=== PATIENT | female | born 1960 | race Caucasian/White ===

== ENCOUNTER 2018-02-14 10:26 | Inpatient (IN) | payer MEDICARE ==
[2018-02-14] VITALS (16 sets, daily range): BP systolic 87–274; BP diastolic 52–138; PULSE 88–114; RESP 14–22; TEMP 97.8; O2SAT 100
[~2018-02-14 10:26] MED LIST: CARV12.52 OR; HYDR50TA5 PO; TELM1TAB56 PO
[2018-02-14] MEDS ORDERED: niCARdipine INJ 25 MG in SODIUM CHLOR 0.9% 250 ML INJ 240 ML IV PRN (10:45)
--- NOTE | 2018-02-14 10:58 | RADRPT ---
EXAM DATE/TIME: 02/14/2018 10:31 [facility] COMPARISON: CHEST SINGLE AP, April 19, 2011, 16:34. INDICATIONS : Endotracheal tube placement. MEDICAL HISTORY : Unknown SURGICAL HISTORY : Unknown ENCOUNTER: Initial ACUITY: 1 day PAIN SCORE: Non-responsive. LOCATION: Bilateral chest FINDINGS: Interval intubation with the tip of the endotracheal tube in the right main bronchus, approximately 2 .4 cm below the roseline. There is mild loss of the left lung with some elevation of the left hemidiap hragm. Gastric tube traverses the [id number]. The right lung is clear. Incidental note of azygo us lobe. Loop recorder device in place. CONCLUSION: Intubation of the right main bronchus; the tube extends 2.4 cm below the roseline. Kamari Triana MD on February 14, 2018 at 10:54 Board Certified Radiologist. This report was verified electronically.
[2018-02-14] MEDS ORDERED: SODIUM CHLOR 0.9% 1000 ML INJ 1,000 ML IV SCH (11:00)
[2018-02-14 11:02] LABS: BASOPHIL % 0.4 % (0.0-2.0); EOSINOPHIL # 0.2 TH/MM3 (0-0.4); EOSINOPHIL % 1.8 % (0.0-4.0); HEMOGLOBIN 10.7 GM/DL (11.6-15.3); LYMPH % 21.4 % (9.0-44.0); LYMPHOCYTE # 2.1 TH/MM3 (1.0-4.8); MEAN CELL VOLUME 89.9 FL (80.0-100.0); MEAN CORPUSCULAR HGB CONC 34.5 % (32.0-36.0); MEAN PLATELET VOLUME 6.9 FL (7.0-11.0); MONO % 5.8 % (0.0-8.0); MONOCYTE # 0.6 TH/MM3 (0-0.9); NEUT % 70.6 % (16.0-70.0); PLATELET COUNT 202 TH/MM3 (150-450); RED BLOOD COUNT 3.45 MIL/MM3 (4.00-5.30); RED CELL DISTRIBUTION WIDTH 14.1 % (11.6-17.2); WHITE BLOOD COUNT 9.9 TH/MM3 (4.0-11.0)
--- NOTE | 2018-02-14 11:03 | PD ---
HPI Chief Complaint: Altered Mental Status Time Seen by Provider: 10:28 Travel History International Travel<30 days: No Contact w/Intl Traveler<30days: No Traveled to known affect area: No History of Present Illness HPI 57-year-old female was brought in by EMS for altered mental status. EMS reported that the daughter heard patient screaming this morning. Patient's daughter felt patient lying facedown on the floor with some blood from the mouth. Patient's daughter tried to turn the patient over and the patient became unresponsive. EMS was called. Patient was found to have a GS of 3. Patient was given Versed 4 mg and etomidate 20 mg IV and intubated. Patient has history of hypertension and diabetes. Patient also has history of CVA recently and was on Lovenox and switched to Coumadin for the past few days. Unable to obtain any more information from EMS. Family members not available. PFSH Past Medical History Medical History: Unable to Obtain Cerebrovascular Accident: Yes Diabetes: Yes Patient Takes Glucophage: No Genitourinary: Yes (Kidney disease (FSGS)) Hypertension: Yes Tetanus Vaccination: Unknown ?: Unknown Past Surgical History Surgical History: Unable to Obtain Abdominal Surgery: Yes (Kidney Biopsy) Section: Yes Tonsillectomy: Yes Social History Alcohol Use: Yes (occ) Tobacco Use: No Substance Use: No Allergies-Medications (Allergen,Severity, Reaction): Coded Allergies: benazepril (Unverified Allergy, Severe, 06/25/17) captopril (Unverified Allergy, Severe, 06/25/17) codeine (Unverified Allergy, Severe, 06/25/17) enalaprilat (Unverified Allergy, Severe, 06/25/17) fosinopril (Unverified Allergy, Severe, 06/25/17) lisinopril (Unverified Allergy, Severe, 06/25/17) quinapril (Unverified Allergy, Severe, 06/25/17) Reported Meds & Prescriptions Reported Meds & Active Scripts Active Reported Hydrochlorothiazide 25 Mg Tab 25 Mg PO DAILY [Hitrin] 5 Mg PO DAILY Methadone (Methadone HCl) 10 Mg Tab 10 Mg PO QID Gabapentin 600 Mg Tab 600 Mg PO BID Oxybutynin ER 24 HR (Oxybutynin Chloride) 5 Mg Tab 5 Mg PO DAILY Nifedipine ER 24 HR (Nifedipine) 30 Mg Tab 30 Mg PO DAILY Micardis (Telmisartan) 80 Mg Tab 80 Mg PO BID Cymbalta DR (Duloxetine HCl) 60 Mg Capdr 60 Mg PO DAILY Tizanidine (Tizanidine HCl) 4 Mg Cap 4 Mg PO BID Coumadin (Warfarin) 7.5 Mg Tab 7.5 Mg PO DAILY Tramadol (Tramadol HCl) 50 Mg Tab 50 Mg PO BID PRN Pravastatin 40 Mg Tab 40 Mg PO DAILY Review of Systems ROS Limitations: Intubated, Altered Mental Status Physical Exam Narrative GENERAL: Well-nourished, well-developed patient. SKIN: Focused skin assessment warm/dry. HEAD: Normocephalic. EYES: No scleral icterus. No injection or drainage. Pupils 5 mm equal nonreactive. NECK: Supple, trachea midline. No JVD or lymphadenopathy. CARDIOVASCULAR: Regular rate and rhythm without murmurs, gallops, or rubs. RESPIRATORY: Patient has no spontaneous respiration. Patient is intubated. Breath sounds equal bilaterally with vent GASTROINTESTINAL: Abdomen soft, nondistended. MUSCULOSKELETAL: No cyanosis, or edema. BACK: No obvious deformity. Neurologic exam: Patient unresponsive. Patient is intubated. No corneal reflex. Data Data Last Documented VS Vital Signs Date Time Temp Pulse Resp B/P (MAP) Pulse Ox O2 Delivery O2 Flow Rate FiO2 02/14/18 11:32 102 102/56 (71) 02/14/18 11:23 14 100 Ventilator 100 02/14/18 10:28 97.8 Orders Orders Electrocardiogram (02/14/18 10:28) Complete Blood Count With Diff (02/14/18 10:28) Comprehensive Metabolic Panel (02/14/18 10:28) Creatine Kinase (Cpk) (02/14/18 10:28) Troponin I (02/14/18 10:28) B-Type Natriuretic Peptide (02/14/18 10:28) Prothrombin Time / Inr (Pt) (02/14/18 10:28) Act Partial Throm Time (Ptt) (02/14/18 10:28) Blood Culture (02/14/18 10:28) Urinalysis - C+S If Indicated (02/14/18 10:28) Thyroid Stimulating Hormone (02/14/18 10:28) Chest, Single Ap (02/14/18 10:28) Ct Brain W/O Iv Contrast(Rout) (02/14/18 10:28) Iv Access Insert/Monitor (02/14/18 10:28) Ecg Monitoring (02/14/18 10:28) Oximetry (02/14/18 10:28) Urinary Catheter Insert/Apply (02/14/18 10:28) Kirstie-Gastric Tube Insert/Mon (02/14/18 10:28) Drug Screen, Random Urine (02/14/18 10:28) Alcohol (Ethanol) (02/14/18 10:28) Salicylates (Aspirin) (02/14/18 10:28) Tylenol (Acetaminophen) (02/14/18 10:28) Nicardipine Inj (Cardene Inj) (02/14/18 10:45) Lactic Acid Sepsis Protocol (02/14/18 10:44) Restraints Non-Violent LOU.Q3H (02/14/18 10:45) Sodium Chlor 0.9% 1000 Ml Inj (Ns 1000 M (02/14/18 11:00) Ct Cerv Spine W/O Contrast (02/14/18 10:58) ^ Lab Follow Up (02/14/18 11:03) Fresh Frozen Plasma (Ffp) (02/14/18 11:03) Type And Screen (02/14/18 11:03) Prothrombin Complex Conc Inj (Kcentra In (02/14/18 12:15) Ct Facial Bones W/O Iv Cont (02/14/18 11:09) Norepinephrine-Dextrose Drip (Levophed-D (02/14/18 13:00) Terbutaline Inj (Brethine Inj) (02/14/18 11:30) Lactic Acid Sepsis Protocol (02/14/18 11:25) Norepinephrine Inj (Levophed Inj) (02/14/18 11:25) Fresh Frozen Plasma (Ffp) (02/14/18 11:29) Blood Product Administration (02/14/18 11:29) Sodium Chlor 0.9% 250 Ml Inj (Ns 250 Ml (02/14/18 11:30) Admit Order (Ed Use Only) (02/14/18 11:30) Labs Laboratory Tests Test 02/14/18 10:35 White Blood Count 9.9 TH/MM3 Red Blood Count 3.45 MIL/MM3 Hemoglobin 10.7 GM/DL Hematocrit 31.0 % Mean Corpuscular Volume 89.9 FL Mean Corpuscular Hemoglobin 31.0 PG Mean Corpuscular Hemoglobin Concent 34.5 % Red Cell Distribution Width 14.1 % Platelet Count 202 TH/MM3 Mean Platelet Volume 6.9 FL Neutrophils (%) (Auto) 70.6 % Lymphocytes (%) (Auto) 21.4 % Monocytes (%) (Auto) 5.8 % Eosinophils (%) (Auto) 1.8 % Basophils (%) (Auto) 0.4 % Neutrophils # (Auto) 7.0 TH/MM3 Lymphocytes # (Auto) 2.1 TH/MM3 Monocytes # (Auto) 0.6 TH/MM3 Eosinophils # (Auto) 0.2 TH/MM3 Basophils # (Auto) 0.0 TH/MM3 CBC Comment DIFF FINAL Differential Comment Prothrombin Time 46.9 SEC Prothromb Time International Ratio 4.7 RATIO Activated Partial Thromboplast Time 49.6 SEC Urine Color LIGHT-YELLOW Urine Turbidity HAZY Urine pH 5.5 Urine Specific [place] 1.017 Urine Protein 100 mg/dL Urine Glucose (UA) TRACE mg/dL Urine Ketones NEG mg/dL Urine Occult Blood SMALL Urine Nitrite NEG Urine Bilirubin NEG Urine Urobilinogen LESS THAN 2.0 MG/DL Urine Leukocyte Esterase NEG Urine RBC 3 /hpf Urine WBC 2 /hpf Urine Squamous Epithelial Cells 3 /hpf Urine Bacteria FEW /hpf Urine Mucus FEW /lpf Microscopic Urinalysis Comment CULT NOT INDICATED Lactic Acid Level 1.3 mmol/L B-Type Natriuretic Peptide 64 PG/ML Salicylates Level 3.0 MG/DL Urine Opiates Screen NEG Urine Barbiturates Screen NEG Urine Amphetamines Screen NEG Urine Benzodiazepines Screen POS Urine Cocaine Screen NEG Urine Cannabinoids Screen NEG MDM Medical Decision Making Medical Screen Exam Complete: Yes Emergency Medical Condition: Yes Interpretation(s) Last Impressions Maxillofacial CT 02/14/18 1109 Signed Impressions: Service Date/Time: Wednesday, February 14, 2018 11:00 - CONCLUSION: 1. No facial fractures. 2. See the CT of the brain reported separately. Kamari Escalante Jr., MD Cervical Spine CT 02/14/18 1057 Signed Impressions: Service Date/Time: Wednesday, February 14, 2018 11:04 - CONCLUSION: 1. No acute fracture or subluxation. 2. Mild degenerative spondylosis of the cervical spine. 3. Heterogeneously enlarged thyroid containing calcified nodules. Rich Schultz MD Head CT 02/14/18 1028 Signed Impressions: Service Date/Time: Wednesday, February 14, 2018 11:00 - CONCLUSION: There is a huge right temporal and parietal hematoma with spread to the subarachnoid and intraventricular spaces. There is both subfalcine and transtentorial herniation. The findings were called to Dr. Junior. Kamari Triana MD Chest X-Ray 02/14/18 1028 Signed Impressions: Service Date/Time: Wednesday, February 14, 2018 10:31 - CONCLUSION: Intubation of the right main bronchus; the tube extends 2.4 cm below the roseline. Kamari Triana MD Differential Diagnosis Differential diagnosis includes CVA, electrolyte imbalance, dehydration, sepsis. Narrative Course 57-year-old female was brought in by EMS after patient was found unresponsive at home. Patient was intubated at the scene. Patient is on Coumadin for recent CVA. CT scan shows intracranial hemorrhage with herniation. Patient was hypotensive. Cardene drip was started. K frozen plasma. Frozen plasma were ordered. Dr. ARTHUR, neurosurgeon and I spoke with the family and discussed with the family. Family decided to make patient DNR. Family decided against K Centra and fresh frozen plasma. Family members decided against Levophed for hypotension. Critical Care Narrative Aggregate critical care time was 60 minutes. Time to perform other separately billable procedures was not included in the critical care time. My time did not include minutes spent treating any other patients simultaneously or on activities that did not directly contribute to the patient's treatment. The services I provided to this patient were to treat and/or prevent clinically significant deterioration that could result in: I provided critical care services requiring my management, as noted below: Chart data review, documentation time, medication orders and management, vital sign assessments/reviewing monitor data, ordering and reviewing lab tests, ordering and interpreting/reviewing x-rays and diagnostic studies, care of the patient and discussion of the patient with the admitting physicians. Diagnosis Primary Impression: Intracranial hemorrhage Admitting Information Admitting Physician Requests: Admit Kapil Junior MD Feb 14, 2018 11:03
--- NOTE | 2018-02-14 11:12 | RADRPT ---
EXAM DATE/TIME: 02/14/2018 11:00 [facility] COMPARISON: CT BRAIN W/O CONTRAST, April 19, 2011, 17:07. INDICATIONS : Altered mental status. RADIATION DOSE: 35.56 CTDIvol (mGy) MEDICAL HISTORY : Non-responsive. SURGICAL HISTORY : Non-responsive. ENCOUNTER: Initial ACUITY: 1 day PAIN SCALE: Non-responsive LOCATION: cranial TECHNIQUE: Multiple contiguous axial images were obtained of the head. Using automated exposure control and adj ustment of the mA and/or kV according to patient size, radiation dose was kept as low as reasonably a chievable to obtain optimal diagnostic quality images. DICOM format image data is available electro nically for review and comparison. FINDINGS: Abnormal scan. There is a large parenchymal hemorrhage involving both the right temporal and parieta l lobes, measuring in excess of 7.3 cm which causes significant mass effect, with deviation of the 3r d ventricle 1.7 cm towards the left. There is also some subarachnoid blood extending to the high con vexity and intraventricular blood in the lateral ventricles, 3rd ventricle, and 4th ventricle. There is evidence of both subfalcine and transtentorial herniation with no CSF seen about the cisterns of the brainstem. The 4th ventricle remains in the midline. The calvarium is intact. CONCLUSION: There is a huge right temporal and parietal hematoma with spread to the subarachnoid and intraventric ular spaces. There is both subfalcine and transtentorial herniation. The findings were called to Dr. Junior. Kamari Triana MD on February 14, 2018 at 11:03 Board Certified Radiologist. This report was verified electronically.
[2018-02-14 11:16] LABS: INTERNATIONAL NORMALIZED RATIO 4.7 RATIO; PROTHROMBIN TIME - PATIENT 46.9 SEC (9.8-11.6)
[2018-02-14 11:22] LABS: BACTERIA, URINE FEW /hpf; BILIRUBIN, URINE NEG (NEG); BLOOD, URINE SMALL (NEG); GLUCOSE,URINE TRACE mg/dL (NEG); KETONE, URINE NEG (NEG); MUCUS URINE FEW /lpf (OCC); NITRITE,URINE NEG (NEG); PH, URINE 5.5 (5.0-8.5); SQUAMOUS EPITHELIAL CELL URINE 3 /hpf (0-5); URINE COLOR LIGHT-YELLOW (YELLW/STRAW); URINE LEUKOCYTE ESTERASE NEG (NEG)
[2018-02-14] MEDS ORDERED: TELM1TAB56 PO (11:23)
[2018-02-14] MEDS ORDERED: TRAM50TA PO (11:23)
[2018-02-14] MEDS ORDERED: [UNRECOGNIZED DRUG - OTHER] PO (11:23)
[2018-02-14] MEDS ORDERED: TIZA4CAP3 PO (11:23)
[2018-02-14] MEDS ORDERED: GABA600T PO (11:23)
[2018-02-14] MEDS ORDERED: OXYB5TAB PO (11:23)
[2018-02-14] MEDS ORDERED: CYMB60CA PO (11:23)
[2018-02-14] MEDS ORDERED: METH10TA PO (11:23)
[2018-02-14] MEDS ORDERED: PRAV40TA2 PO (11:23)
[2018-02-14] MEDS ORDERED: NIFE30TA61 PO (11:23)
[2018-02-14] MEDS ORDERED: HYDR25TA5 PO (11:23)
[2018-02-14] MEDS ORDERED: COUM7.5T PO (11:23)
[2018-02-14] MEDS ORDERED: NOREPINEPHRINE 4 MG/4 ML AMP ONE (11:25)
[2018-02-14] MEDS ORDERED: TERBUTALINE INJ 1 MG/ML AMP SQ PRN (11:30)
[2018-02-14] MEDS ORDERED: SODIUM CHLOR 0.9% 250 ML INJ 250 ML IV ONE (11:30)
--- NOTE | 2018-02-14 11:33 | RADRPT ---
EXAM DATE/TIME: 02/14/2018 11:00 [facility] COMPARISON: No previous studies available for comparison. INDICATIONS : Fall. RADIATION DOSE: 80.06 CTDIvol (mGy) MEDICAL HISTORY : Non-responsive. SURGICAL HISTORY : Non-responsive. ENCOUNTER: Initial ACUITY: 1 day PAIN SCORE: Non-responsive LOCATION: facial TECHNIQUE: Volumetric scanning of the facial bones was performed. Using automated exposure control and adjustme nt of the mA and/or kV according to patient size, radiation dose was kept as low as reasonably achiev able to obtain optimal diagnostic quality images. DICOM format image data is available [employer] y for review and comparison. FINDINGS: ORBITS: The orbital and infraorbital osseous structures are intact. The retroconal structures have a normal configuration. No radiopaque foreign bodies are seen. NASAL BONE: The nasal bone and maxillary spine are intact ZYGOMATIC ARCHES: Symmetric without evidence of fracture. SINUSES: The maxillary, ethmoid and frontal sinuses are intact. No air-fluid levels seen. NASAL CAVITY: The nasal septum is intact and midline. The lacrimal ducts are intact. SOFT TISSUES: No radiopaque foreign bodies seen. No soft-tissue swelling is seen. INTRACRANIAL: No intracranial air seen. CRIBIFORM PLATE: Grossly intact. Endotracheal tube and orogastric tube noted. See the CT the brain reported separately. CONCLUSION: 1. No facial fractures. 2. See the CT of the brain reported separately. Kamari Escalante Jr., MD on February 14, 2018 at 11:22 Board Certified Radiologist. This report was verified electronically.
--- NOTE | 2018-02-14 11:33 | RADRPT ---
EXAM DATE/TIME: 02/14/2018 11:04 [facility] COMPARISON: No previous studies available for comparison. INDICATIONS : Fall. RADIATION DOSE: 45.17 CTDIvol (mGy) MEDICAL HISTORY : Non-responsive. SURGICAL HISTORY : Non-responsive. ENCOUNTER: Initial ACUITY: 1 day PAIN SCALE: Non-responsive LOCATION: neck TECHNIQUE: Volumetric scanning of the cervical spine was performed. Multiplanar reconstructions i n the sagittal, coronal and oblique axial planes were performed. Using automated exposure control a nd adjustment of the mA and/or kV according to patient size, radiation dose was kept as low as reason ably achievable to obtain optimal diagnostic quality images. DICOM format image data is available e lectronically for review and comparison. FINDINGS: Vertebral body heights are maintained. Osseous structures are intact without evidence for acute bony fracture. Dens is intact. Sagittal alignment is maintained. There is a normal C1-2 relationship. Face ts are normally aligned. There is no significant prevertebral soft tissue hematoma. Mild degenerative spondylosis of the lower cervical spine most prominently at C4-6 with posterior disc osteophytes. No significant cervical adenopathy or gross mass. The thyroid is heterogeneously enlarged and contains calcified nodules. Visualized lung apices are clear without pneumothorax. CONCLUSION: 1. No acute fracture or subluxation. 2. Mild degenerative spondylosis of the cervical spine. 3. Heterogeneously enlarged thyroid containing calcified nodules. Rich Schultz MD on February 14, 2018 at 11:26 Board Certified Radiologist. This report was verified electronically.
[2018-02-14] MEDS ORDERED: ONDANSETRON HCL 4 MG/2 ML VIAL IV PUSH PRN (12:00)
[2018-02-14] MEDS ORDERED: MORPHINE SULFATE 4 MG/ML INJ IV PUSH PRN (12:00)
[2018-02-14] MEDS ORDERED: MISCELLANEOUS NURSING INFORMATION XX SCH (12:00)
[2018-02-14] MEDS ORDERED: MAGNESIUM HYDROXIDE SUSP 30 ML CUP PO PRN (12:00)
[2018-02-14] MEDS ORDERED: RESP: ALBUTEROL 2.5 MG/IPRATROPIUM 0.5 MG NEB (PRN) INH (12:00)
[2018-02-14] MEDS ORDERED: CHLORHEXIDINE GLUCONATE 2 % 1 PACK (2 CLOTHS) TOP PRN (12:00)
[2018-02-14] MEDS ORDERED: ACETAMINOPHEN 325 MG TAB PO PRN (12:00)
[2018-02-14] MEDS ORDERED: SENNOSIDES 8.6 MG TAB PO PRN (12:00)
[2018-02-14] MEDS ORDERED: BISACODYL 10 MG SUPP RECTAL PRN (12:00)
[2018-02-14] MEDS ORDERED: LACTULOSE SYRUP 20 GM/30 ML CUP PO PRN (12:00)
[2018-02-14] MEDS ORDERED: SODIUM CHLORIDE 0.9% FLUSH 10 ML FLUSH IV FLUSH PRN (12:00)
[2018-02-14] MEDS ORDERED: PROTHROMBIN COMPLEX CONC INJ 2,500 UNITS in SYRINGE/BAG 1 EA IV ONE (12:15)
[2018-02-14] MEDS ORDERED: NOREPINEPHRINE-DEXTROSE DRIP 250 ML IV PRN (13:00)
[2018-02-14 13:40] LABS: ALBUMIN 3.3 GM/DL (3.4-5.0); AST (GOT) 24 U/L (15-37); BICARBONATE 21.7 MEQ/L (21.0-32.0); BLOOD UREA NITROGEN 54 MG/DL (7-18); CALCIUM 9.1 MG/DL (8.5-10.1); CHLORIDE 106 MEQ/L (98-107); CREATININE 2.14 MG/DL (0.50-1.00); GLOMERULAR FILTRATION RATE 24 ML/MIN (>89); GLUCOSE,RANDOM 217 MG/DL (74-106); SODIUM (NA) 140 MEQ/L (136-145)
[2018-02-14 13:41] LABS: ALT (GPT) 23 U/L (10-53)
[2018-02-14 13:51] LABS: ACETAMINOPHEN LESS THAN 2.0 MCG/ML (10.0-30.0); ALKALINE PHOSPHATASE 96 U/L (45-117); TOTAL BILIRUBIN ADULT 0.3 MG/DL (0.2-1.0); TOTAL PROTEIN 7.7 GM/DL (6.4-8.2); TROPONIN I LESS THAN 0.02 NG/ML (0.02-0.05)
--- NOTE | 2018-02-14 13:59 | HHI.HP ---
[facility] Service Critical Care Medicine Primary Care Physician Unknown Admission Diagnosis Intracranial hemorrhage. On anticoagulation. Diagnosis: Chief Complaint: Headache, unconscious now. Travel History International Travel<30 Days: No Contact w/Intl Traveler <30 Da: No Traveled to Known Affected Are: No History of Present Illness 57 y/o woman with longstanding hypertension developed severe headache progressing to obtundation. CT head with large intracranial hemorrhage and herniation. Required intubation and mechanical ventilation. Workup proceeding. Care is complicated by coagulopathy due to INR > 4 via coumadin therapy. Kcentra and FFP infused immediately. Review of Systems ROS Unable. No family yet. Past Family Social History Allergies: Coded Allergies: benazepril (Unverified Allergy, Severe, 06/25/17) captopril (Unverified Allergy, Severe, 06/25/17) codeine (Unverified Allergy, Severe, 06/25/17) enalaprilat (Unverified Allergy, Severe, 06/25/17) fosinopril (Unverified Allergy, Severe, 06/25/17) lisinopril (Unverified Allergy, Severe, 06/25/17) quinapril (Unverified Allergy, Severe, 06/25/17) Past Medical History Past Medical History Medical History: Unable to Obtain Cerebrovascular Accident: Yes Diabetes: Yes Patient Takes Glucophage: No Genitourinary: Yes (Kidney disease (FSGS)) Hypertension: Yes Tetanus Vaccination: Unknown ?: Unknown Past Surgical History Surgical History: Unable to Obtain Abdominal Surgery: Yes (Kidney Biopsy) Section: Yes Tonsillectomy: Yes Social History Alcohol Use: Yes (occ) Tobacco Use: No Substance Use: No Allergies-Medications Allergies-Medications (Allergen,Severity, Reaction): Coded Allergies: benazepril (Unverified Allergy, Severe, 06/25/17) captopril (Unverified Allergy, Severe, 06/25/17) codeine (Unverified Allergy, Severe, 06/25/17) enalaprilat (Unverified Allergy, Severe, 06/25/17) fosinopril (Unverified Allergy, Severe, 06/25/17) lisinopril (Unverified Allergy, Severe, 06/25/17) quinapril (Unverified Allergy, Severe, 06/25/17) Reported Meds & Prescriptions Reported Meds & Active Scripts Active Reported Hydrochlorothiazide 25 Mg Tab 25 Mg PO DAILY [Hitrin] 5 Mg PO DAILY Methadone (Methadone HCl) 10 Mg Tab 10 Mg PO QID Gabapentin 600 Mg Tab 600 Mg PO BID Oxybutynin ER 24 HR (Oxybutynin Chloride) 5 Mg Tab 5 Mg PO DAILY Nifedipine ER 24 HR (Nifedipine) 30 Mg Tab 30 Mg PO DAILY Micardis (Telmisartan) 80 Mg Tab 80 Mg PO BID Cymbalta DR (Duloxetine HCl) 60 Mg Capdr 60 Mg PO DAILY Tizanidine (Tizanidine HCl) 4 Mg Cap 4 Mg PO BID Coumadin (Warfarin) 7.5 Mg Tab 7.5 Mg PO DAILY Tramadol (Tramadol HCl) 50 Mg Tab 50 Mg PO BID PRN Pravastatin 40 Mg Tab 40 Mg PO DAILY Physical Exam Vital Signs Vital Signs Date Time Temp Pulse Resp B/P (MAP) Pulse Ox O2 Delivery O2 Flow Rate FiO2 02/14/18 13:45 90 115/62 (79) 02/14/18 12:52 92 16 97/60 (72) 100 Ventilator 100 02/14/18 12:33 95 87/52 (64) 02/14/18 12:08 97 88/54 (65) 02/14/18 11:43 100 96/55 (69) 02/14/18 11:32 102 102/56 (71) 02/14/18 11:23 104 14 91/55 (67) 100 Ventilator 100 02/14/18 11:15 100 100 02/14/18 11:00 99 20 105/57 (73) 100 Ventilator 100 02/14/18 10:52 88 106/56 (73) 02/14/18 10:49 100 02/14/18 10:48 91 18 117/69 (85) 02/14/18 10:46 107 132/74 02/14/18 10:42 104 210/107 02/14/18 10:41 107 274/138 02/14/18 10:37 (183) 100 Ventilator 100 02/14/18 10:35 114 22 274/138 (183) 02/14/18 10:33 106 22 100 Ventilator 100 02/14/18 10:30 100 100 02/14/18 10:28 97.8 106 22 268/134 (178) 100 Physical Exam Gen: Obtunded. Neck: Supple, orally intubated. Lungs: Clear, good rodri air movement. Heart: RRR, 92/min, no m,r. No JVD. Abdomen: Soft, benign. Extremities: Warm, well perfused. Neuro: Pupils 6 mm, fixed. No cough, no gag, no corneal reflexes. No withdrawal to any stimulation. No spontaneous respiratory effort. No DTRs. No sedation. Laboratory Laboratory Tests Test 02/14/18 10:35 White Blood Count 9.9 Red Blood Count 3.45 Hemoglobin 10.7 Hematocrit 31.0 Mean Corpuscular Volume 89.9 Mean Corpuscular Hemoglobin 31.0 Mean Corpuscular Hemoglobin Concent 34.5 Red Cell Distribution Width 14.1 Platelet Count 202 Mean Platelet Volume 6.9 Neutrophils (%) (Auto) 70.6 Lymphocytes (%) (Auto) 21.4 Monocytes (%) (Auto) 5.8 Eosinophils (%) (Auto) 1.8 Basophils (%) (Auto) 0.4 Neutrophils # (Auto) 7.0 Lymphocytes # (Auto) 2.1 Monocytes # (Auto) 0.6 Eosinophils # (Auto) 0.2 Basophils # (Auto) 0.0 CBC Comment DIFF FINAL Differential Comment Prothrombin Time 46.9 Prothromb Time International Ratio 4.7 Activated Partial Thromboplast Time 49.6 Urine Color LIGHT-YELLOW Urine Turbidity HAZY Urine pH 5.5 Urine Specific [place] 1.017 Urine Protein 100 Urine Glucose (UA) TRACE Urine Ketones NEG Urine Occult Blood SMALL Urine Nitrite NEG Urine Bilirubin NEG Urine Urobilinogen LESS THAN 2.0 Urine Leukocyte Esterase NEG Urine RBC 3 Urine WBC 2 Urine Squamous Epithelial Cells 3 Urine Bacteria FEW Urine Mucus FEW Microscopic Urinalysis Comment CULT NOT INDICATED Lactic Acid Level 1.3 B-Type Natriuretic Peptide 64 Salicylates Level 3.0 Urine Opiates Screen NEG Urine Barbiturates Screen NEG Urine Amphetamines Screen NEG Urine Benzodiazepines Screen POS Urine Cocaine Screen NEG Urine Cannabinoids Screen NEG Date/Time Source Procedure Growth Status 02/14/18 10:35 Blood Peripheral Aerobic Blood Culture Pending Received 02/14/18 10:35 Blood Peripheral Anaerobic Blood Culture Pending Received Result Diagram: 02/14/18 6283 Caprini VTE Risk Assessment Caprini VTE Risk Assessment: No/Low Risk (score <= 1) Caprini Risk Assessment Model Point Value = 1 Point Value = 2 Point Value = 3 Point Value = 5 Age 41-60 Minor surgery BMI > 25 kg/m2 Swollen legs Varicose veins or History of unexplained or recurrent spontaneous Oral contraceptives or hormone replacement Sepsis (< 1 month) Serious lung disease, including pneumonia (< 1 month) Abnormal pulmonary function Acute myocardial infarction Congestive heart failure (< 1 month) History of inflammatory bowel disease Medical patient at bed rest Age 61-74 Arthroscopic surgery Major open surgery (> 45 min) Laparoscopic surgery (> 45 min) Malignancy Confined to bed (> 72 hours) Immobilizing plaster cast Central venous access Age >= 75 History of VTE Family history of VTE Factor V Leiden Prothrombin [id number] Lupus anticoagulant Anticardiolipin antibodies Elevated serum homocysteine Heparin-induced thrombocytopenia Other congenital or acquired thrombophilia Stroke (< 1 month) Elective arthroplasty Hip, pelvis, or leg fracture Acute spinal cord injury (< 1 month) Prophylaxis Regimen Total Risk Factor Score Risk Level Prophylaxis Regimen 0-1 Low Early ambulation 2 Moderate Order ONE of the following: *Sequential Compression Device (SCD) *Heparin 5000 units SQ BID 3-4 Higher Order ONE of the following medications: *Heparin 5000 units SQ TID *Enoxaparin/Lovenox 40 mg SQ daily (WT < 150 kg, CrCl > 30 mL/min) *Enoxaparin/Lovenox 30 mg SQ daily (WT < 150 kg, CrCl > 10-29 mL/min) *Enoxaparin/Lovenox 30 mg SQ BID (WT < 150 kg, CrCl > 30 mL/min) AND/OR *Sequential Compression Device (SCD) 5 or more Highest Order ONE of the following medications: *Heparin 5000 units SQ TID (Preferred with Epidurals) *Enoxaparin/Lovenox 40 mg SQ daily (WT < 150 kg, CrCl > 30 mL/min) *Enoxaparin/Lovenox 30 mg SQ daily (WT < 150 kg, CrCl > 10-29 mL/min) *Enoxaparin/Lovenox 30 mg SQ BID (WT < 150 kg, CrCl > 30 mL/min) AND *Sequential Compression Device (SCD) Assessment and Plan Problem List: (1) Intracranial hemorrhage ICD Code: I62.9 - Nontraumatic intracranial hemorrhage, unspecified Status: Acute (2) Respiratory failure ICD Code: J96.90 - Respiratory failure, unspecified, unspecified whether with hypoxia or hypercapnia Status: Acute (3) Warfarin-induced coagulopathy ICD Code: D68.32 - Hemorrhagic disorder due to extrinsic circulating anticoagulants; T45.515A - Adverse effect of anticoagulants, initial encounter Status: Acute (4) Hypertensive urgency ICD Code: I16.0 - Hypertensive urgency Status: Acute Assessment and Plan Plan: Admit ISC, BP control with cardene, elevate HOB, EVD per NS, osmolality concentration, no dvt px. Overall impression: Patient is critically ill with a massive acute hypertensive brain hemorrhage. The neurological injury is severe and we have needed to place her on mechanical ventilation for respiratory support. She remains hemodynamically unstable. Critical care 45 mins Problem Qualifiers (1) Respiratory failure: Qualified Codes: J96.01 - Acute respiratory failure with hypoxia; J96.02 - Acute respiratory failure with hypercapnia Drew Harvey MD Feb 14, 2018 13:59
[2018-02-14] MEDS ORDERED: LORazepam 2 MG/ML VIAL IV PUSH PRN (14:15)
[2018-02-14] MEDS ORDERED: HYDROmorphone HCL PF 2 MG/ML VIAL IV PUSH PRN (14:15)
--- NOTE | 2018-02-14 16:01 | EKG ---
Date Performed: 02/14/2018 Time Performed: 10:40:16 PTAGE: 57 years EKG: SINUS TACHYCARDIA NONSPECIFIC ST & T-WAVE ABNORMALITY ABNORMAL RHYTHM ECG PREVIOUS TRACING : 04/19/2011 17.42 No significant change from previous tracing noted. DOCTOR: Ike Quick Interpretating Date/Time 02/14/2018 16:01:14
--- NOTE | 2018-02-14 16:50 | HHI.DS ---
Discharge Summary Admission Date Feb 14, 2018 at 11:33 Discharge Date: Feb 14, 2018 Admitting Diagnosis Intracranial hemorrhage. On anticoagulation. (1) Intracranial hemorrhage ICD Code: I62.9 - Nontraumatic intracranial hemorrhage, unspecified Diagnosis: Principal Status: Acute (2) Respiratory failure ICD Code: J96.90 - Respiratory failure, unspecified, unspecified whether with hypoxia or hypercapnia Diagnosis: Principal Status: Acute (3) Hypertensive urgency ICD Code: I16.0 - Hypertensive urgency Diagnosis: Principal Status: Acute (4) Warfarin-induced coagulopathy ICD Code: D68.32 - Hemorrhagic disorder due to extrinsic circulating anticoagulants; T45.515A - Adverse effect of anticoagulants, initial encounter Diagnosis: Secondary Status: Acute Brief History 57 y/o woman with longstanding hypertension developed severe headache progressing to obtundation. CT head with large intracranial hemorrhage and herniation. Required intubation and mechanical ventilation. Workup proceeding. Care is complicated by coagulopathy due to INR > 4 via coumadin therapy. Kcentra and FFP infused immediately. CBC/BMP: 02/14/18 1035 02/14/18 1035 Significant Findings Laboratory Tests Test 02/14/18 10:35 Red Blood Count 3.45 MIL/MM3 (4.00-5.30) Hemoglobin 10.7 GM/DL (11.6-15.3) Hematocrit 31.0 % (35.0-46.0) Mean Platelet Volume 6.9 FL (7.0-11.0) Neutrophils (%) (Auto) 70.6 % (16.0-70.0) Prothrombin Time 46.9 SEC (9.8-11.6) Activated Partial Thromboplast Time 49.6 SEC (24.3-30.1) Urine Turbidity HAZY (CLEAR) Urine Protein 100 mg/dL (NEG-TRACE) Urine Occult Blood SMALL (NEG) Urine Bacteria FEW /hpf (NONE) Urine Mucus FEW /lpf (OCC) Blood Urea Nitrogen 54 MG/DL (7-18) Creatinine 2.14 MG/DL (0.50-1.00) Random Glucose 217 MG/DL (74-106) Albumin 3.3 GM/DL (3.4-5.0) Estimat Glomerular Filtration Rate 24 ML/MIN (>89) Troponin I LESS THAN 0.02 NG/ML Acetaminophen Level LESS THAN 2.0 MCG/ML Urine Benzodiazepines Screen POS (NEG) Imaging CT head: Large intracranial bleed with herniation PE at Discharge . Transfer Summary After early aggressive resuscitation patient continued to deteriorate and family elected to withdraw artificial support. The patient shortly after at 1428 hours with her family at her side. With no sedation she demonstrated no neurological function. Pt Condition on Discharge: Deteriorating Drew Harvey MD Feb 14, 2018 16:50
--- NOTE | 2018-02-14 18:26 | PD.CONS ---
History of Present Illness Service Neurosurgery Consult Requested By Dr. Junior from emergency room Reason for Consult Hemorrhagic stroke Primary Care Physician Unknown Diagnoses: History of Present Illness 57-year-old morbidly obese female who initially this morning complained of a headache and subsequently was found to be obtunded and comatose with agonal respirations by her daughter at home. Paramedics were summoned and attempted intubation the patient and were eventually successful and was brought to [facility] emergency room. She had no brainstem reflexes of her since arrival with fixed and dilated pupils. CT scan the head reveals extensive right hemisphere hemorrhage along with likely underlying stroke with mass effect and midline shift. She is on Coumadin therapy with elevated PT/INR and associated coagulopathy. She received K Centra and initially was hypertensive also and subsequently became hypotensive. Review of Systems ROS Limitations: Unresponsive Past Family Social History Allergies: Coded Allergies: benazepril (Unverified Allergy, Severe, 06/25/17) captopril (Unverified Allergy, Severe, 06/25/17) codeine (Unverified Allergy, Severe, 06/25/17) enalaprilat (Unverified Allergy, Severe, 06/25/17) fosinopril (Unverified Allergy, Severe, 06/25/17) lisinopril (Unverified Allergy, Severe, 06/25/17) quinapril (Unverified Allergy, Severe, 06/25/17) Past Medical History Cerebrovascular Accident: Yes with recent to strokes and left hemiparesis Diabetes: Yes Patient Takes Glucophage: No Genitourinary: Yes (Kidney disease (FSGS)) Hypertension: Yes Daughter also informs me that this she was informed that her strokes were from clots in her heart and that's why she is on Coumadin. Reported Medications Hydrochlorothiazide 25 Mg Tab 25 Mg PO DAILY [Hitrin] 5 Mg PO DAILY Methadone (Methadone HCl) 10 Mg Tab 10 Mg PO QID Gabapentin 600 Mg Tab 600 Mg PO BID Oxybutynin ER 24 HR (Oxybutynin Chloride) 5 Mg Tab 5 Mg PO DAILY Nifedipine ER 24 HR (Nifedipine) 30 Mg Tab 30 Mg PO DAILY Micardis (Telmisartan) 80 Mg Tab 80 Mg PO BID Cymbalta DR (Duloxetine HCl) 60 Mg Capdr 60 Mg PO DAILY Tizanidine (Tizanidine HCl) 4 Mg Cap 4 Mg PO BID Coumadin (Warfarin) 7.5 Mg Tab 7.5 Mg PO DAILY Tramadol (Tramadol HCl) 50 Mg Tab 50 Mg PO BID PRN Pravastatin 40 Mg Tab 40 Mg PO DAILY Social History Alcohol Use: Yes (occ) Tobacco Use: No Substance Use: No Physical Exam Vital Signs Vital Signs Date Time Temp Pulse Resp B/P (MAP) Pulse Ox O2 Delivery O2 Flow Rate FiO2 02/14/18 15:34 02/14/18 13:56 100 Room Air 02/14/18 13:45 90 115/62 (79) 02/14/18 12:52 92 16 97/60 (72) 100 Ventilator 100 02/14/18 12:33 95 87/52 (64) 02/14/18 12:08 97 88/54 (65) 02/14/18 11:43 100 96/55 (69) 02/14/18 11:32 102 102/56 (71) 02/14/18 11:23 104 14 91/55 (67) 100 Ventilator 100 02/14/18 11:15 100 100 02/14/18 11:00 99 20 105/57 (73) 100 Ventilator 100 02/14/18 10:52 88 106/56 (73) 02/14/18 10:49 100 02/14/18 10:48 91 18 117/69 (85) 02/14/18 10:46 107 132/74 02/14/18 10:42 104 210/107 02/14/18 10:41 107 274/138 02/14/18 10:37 (183) 100 Ventilator 100 02/14/18 10:35 114 22 274/138 (183) 02/14/18 10:33 106 22 100 Ventilator 100 02/14/18 10:30 100 100 02/14/18 10:28 97.8 106 22 268/134 (178) 100 Physical Exam GENERAL: This is a well-nourished, moderately obese patient is unresponsive and intubated on ventilator support. SKIN: No rashes, ecchymoses or lesions. Cool and dry. HEAD: Atraumatic. Normocephalic. No temporal or scalp tenderness. EYES: Pupils equal round and reactive. Extraocular motions intact. No scleral icterus. No injection or drainage. ENT: Nose without bleeding, purulent drainage or septal hematoma. Throat without erythema, tonsillar hypertrophy or exudate with endotracheal tube in place. NECK: Trachea midline. No JVD or lymphadenopathy. Supple, nontender, no meningeal signs. CARDIOVASCULAR: Regular rate and rhythm without murmurs, gallops, or rubs. RESPIRATORY: Clear to auscultation. Breath sounds equal bilaterally. No wheezes , rales, or rhonchi. GASTROINTESTINAL: Abdomen soft, non-tender, nondistended. No hepato-splenomegaly , or palpable masses. No guarding. MUSCULOSKELETAL: Extremities without clubbing, cyanosis, or edema. No joint tenderness, effusion, or edema noted. No calf tenderness. Negative Homans sign bilaterally. NEUROLOGICAL: She is not on any sedation and does not open her eyes to painful stimulation. Her pupils are 6 mm nonreactive fixed and dilated bilaterally. Negative corneal reflex, negative doll's reflex, negative gag reflex, negative cough reflex, no spontaneous respirations over the ventilator and no spontaneous movement or withdrawal to central painful stimulation. [place] Coma Score 3. Laboratory Laboratory Tests Test 02/14/18 10:35 White Blood Count 9.9 Red Blood Count 3.45 Hemoglobin 10.7 Hematocrit 31.0 Mean Corpuscular Volume 89.9 Mean Corpuscular Hemoglobin 31.0 Mean Corpuscular Hemoglobin Concent 34.5 Red Cell Distribution Width 14.1 Platelet Count 202 Mean Platelet Volume 6.9 Neutrophils (%) (Auto) 70.6 Lymphocytes (%) (Auto) 21.4 Monocytes (%) (Auto) 5.8 Eosinophils (%) (Auto) 1.8 Basophils (%) (Auto) 0.4 Neutrophils # (Auto) 7.0 Lymphocytes # (Auto) 2.1 Monocytes # (Auto) 0.6 Eosinophils # (Auto) 0.2 Basophils # (Auto) 0.0 CBC Comment DIFF FINAL Differential Comment Prothrombin Time 46.9 Prothromb Time International Ratio 4.7 Activated Partial Thromboplast Time 49.6 Urine Color LIGHT-YELLOW Urine Turbidity HAZY Urine pH 5.5 Urine Specific [place] 1.017 Urine Protein 100 Urine Glucose (UA) TRACE Urine Ketones NEG Urine Occult Blood SMALL Urine Nitrite NEG Urine Bilirubin NEG Urine Urobilinogen LESS THAN 2.0 Urine Leukocyte Esterase NEG Urine RBC 3 Urine WBC 2 Urine Squamous Epithelial Cells 3 Urine Bacteria FEW Urine Mucus FEW Microscopic Urinalysis Comment CULT NOT INDICATED Blood Urea Nitrogen 54 Creatinine 2.14 Random Glucose 217 Total Protein 7.7 Albumin 3.3 Calcium Level 9.1 Alkaline Phosphatase 96 Aspartate Amino Transf (AST/SGOT) 24 Alanine Aminotransferase (ALT/SGPT) 23 Total Bilirubin 0.3 Sodium Level 140 Potassium Level 3.7 Chloride Level 106 Carbon Dioxide Level 21.7 Anion Gap 12 Estimat Glomerular Filtration Rate 24 Lactic Acid Level 1.3 Total Creatine Kinase 51 Troponin I LESS THAN 0.02 B-Type Natriuretic Peptide 64 Thyroid Stimulating Hormone 3rd Gen 1.490 Salicylates Level 3.0 Urine Opiates Screen NEG Acetaminophen Level LESS THAN 2.0 Urine Barbiturates Screen NEG Urine Amphetamines Screen NEG Urine Benzodiazepines Screen POS Urine Cocaine Screen NEG Urine Cannabinoids Screen NEG Ethyl Alcohol Level LESS THAN 3 Date/Time Source Procedure Growth Status 02/14/18 10:35 Blood Peripheral Aerobic Blood Culture Pending Received 02/14/18 10:35 Blood Peripheral Anaerobic Blood Culture Pending Received Result Diagram: 02/14/18 1035 02/14/18 1035 Imaging Last Impressions Maxillofacial CT 02/14/18 1109 Signed Impressions: Service Date/Time: Wednesday, February 14, 2018 11:00 - CONCLUSION: 1. No facial fractures. 2. See the CT of the brain reported separately. Kamari Escalante Jr., MD Cervical Spine CT 02/14/18 1058 Signed Impressions: Service Date/Time: Wednesday, February 14, 2018 11:04 - CONCLUSION: 1. No acute fracture or subluxation. 2. Mild degenerative spondylosis of the cervical spine. 3. Heterogeneously enlarged thyroid containing calcified nodules. Rich Schultz MD Head CT 02/14/18 1028 Signed Impressions: Service Date/Time: Wednesday, February 14, 2018 11:00 - CONCLUSION: There is a huge right temporal and parietal hematoma with spread to the subarachnoid and intraventricular spaces. There is both subfalcine and transtentorial herniation. The findings were called to Dr. Junior. Kamari Triana MD Chest X-Ray 02/14/18 1028 Signed Impressions: Service Date/Time: Wednesday, February 14, 2018 10:31 - CONCLUSION: Intubation of the right main bronchus; the tube extends 2.4 cm below the roseline. Kamari Triana MD Assessment and Plan Assessment and Plan 57-year-old female with a large right hemisphere hemorrhage with mass effect and midline shift the and severe coagulopathy with a chronic Coumadin use. Unfortunately her exam is consistent with loss of brain stem reflexes and clinical brain at this point. I've discussed this with her daughter at the bedside and given the poor prognosis she has requested that no heroic measures be undertaken and wants her to be made DNR with withdrawal of supportive care but would like to confirm this with her grandparents prior to withdrawal. She relates that the patient has had recent strokes with left-sided weakness and has expressed to her her that she would not want to live if she required dependent care or long-term deficits. Accordingly we will honor their wishes. Tito Arambula MD Feb 14, 2018 18:26
[2018-02-14] MEDS ORDERED: CHLORHEXIDINE 0.12% (ORAL KIT) 15 ML CUP MT SCH (20:00)
[2018-02-14] MEDS ORDERED: SODIUM CHLORIDE 0.9% FLUSH 10 ML FLUSH IV FLUSH SCH (21:00)
[2018-02-14] MEDS ORDERED: FAMOTIDINE 20 MG/2 ML VIAL IV PUSH SCH (21:00)
[2018-02-14] MEDS ORDERED: DOCUSATE SODIUM 50 MG/SENNA 8.6 MG TAB PO SCH (21:00)
[2018-02-15] MEDS ORDERED: CHLORHEXIDINE GLUCONATE 2 % 1 PACK (2 CLOTHS) TOP SCH (04:00)
[2018-02-21] MEDS ORDERED: TERA5CAP3 PO (17:08)
== END 2018-02-14 14:28 | disposition expired | DRG 64 ==
LOC: NEPE 10:26 → NEDA 11:33
PROVIDERS: ADMIT Surgery Surgical Critical Care; ATTEND Surgery Surgical Critical Care
PROC: 5A1935Z Respiratory Ventilation, Less than 24 Consecutive Hours (ICD-10-PCS; principal; 2018-02-14)
DX: I62.9 Nontraumatic intracranial hemorrhage, unspecified (principal); J96.90 Respiratory failure, unspecified, unspecified whether with hypoxia or hypercapnia; D68.32 Hemorrhagic disorder due to extrinsic circulating anticoagulants; I69.354 Hemiplegia and hemiparesis following cerebral infarction affecting left non-dominant side; I16.0 Hypertensive urgency; T45.515A Adverse effect of anticoagulants, initial encounter; I10 Essential (primary) hypertension; E11.9 Type 2 diabetes mellitus without complications; N26.9 Renal sclerosis, unspecified; Z66 Do not resuscitate; E66.01 Morbid (severe) obesity due to excess calories
CPT/HCPCS: 43753; 51702; 70450; 70486; 71045; 72125; 80053; 80307; 81001; 82550; 83605; 83880; 84443; 84484; 85025; 85610; 85730; 86850; 86900; 86901; 87040; 87205; 93005; 96374; C9132; J7030; J7050